=== PATIENT | female | born 1950 ===

== ENCOUNTER 2023-02-05 06:24 | Day surgery (SDC) | payer OTHER ==
[~2023-02-05 06:24] MED LIST: IBANDRONATE SO150 MG PO; LEVOTHYROXINE25 MCG PO; ZESTRIL10 M1 PO
[2023-02-05] MEDS ORDERED: PERCOCET 5-3251 EACH PO (12:58)
[2023-02-05] MEDS ORDERED: IBU800 MG PO (12:58)
== END 2023-02-05 16:45 | disposition home or self-care (01) ==
LOC: CIR.AMB 06:24
PROVIDERS: ATTEND Obstetrics & Gynecology Gynecology
DX: D27.0 Benign neoplasm of right ovary (principal); D28.2 Benign neoplasm of uterine tubes and ligaments; N83.8 Other noninflammatory disorders of ovary, fallopian tube and broad ligament; E78.5 Hyperlipidemia, unspecified; I10 Essential (primary) hypertension; E03.9 Hypothyroidism, unspecified; Z20.822 Contact with and (suspected) exposure to COVID-19